=== PATIENT | female | born 2000 | race Two or more races ===

== ENCOUNTER → 2019-06-26 17:10 | Outpatient (CLI) | payer OTHER, SELFPAY ==
[2019-06-26 20:55] LABS: Chlamydia Trachomatis by PCR Negative (Negative); Neisserai gonorrhoeae by PCR Negative (Negative)
[2019-06-26 20:56] LABS: Probe Check PASS; Sample Adequacy Control PASS; Specimen Processing Control PASS
== END ==
PROVIDERS: Visit Provider Obstetrics & Gynecology
DX: Z11.3 Encounter for screening for infections with a predominantly sexual mode of transmission (principal)
CPT/HCPCS: 87491; 87591